=== PATIENT | male | born 1965 | race African-American/Black ===

== ENCOUNTER 2017-09-05 14:06 | Emergency (ER) | payer SELFPAY ==
--- NOTE | 2017-09-05 15:03 | RAD ---
THREE VIEWS OF THE RIGHT SHOULDER: DATE: 09/05/17. COMPARISON: None. HISTORY: Fell on right shoulder last night, injury, pain. FINDINGS: There is no widening of the AC or CC interspace. There is no displaced fracture or evidence of dislo cation seen. IMPRESSION: No acute fracture or evidence of dislocation. POS: [facility]
[2017-09-05] MEDS ORDERED: Ketorolac Tromethamine 60 MG/2 ML VIAL ONE (15:15)
== END 2017-09-05 15:46 | disposition home or self-care (01) ==
LOC: NAV ERS 14:06
DX: S40.011A Contusion of right shoulder, initial encounter (principal); F17.210 Nicotine dependence, cigarettes, uncomplicated; W01.0XXA Fall on same level from slipping, tripping and stumbling without subsequent striking against object, initial encounter
CPT/HCPCS: 96372; J1885

== ENCOUNTER 2017-09-20 15:06 | Emergency (ER) | payer SELFPAY ==
[2017-09-20] MEDS ORDERED: Acetaminophen/Codeine 30-300mg Tablet ONE (15:18)
== END 2017-09-20 15:28 | disposition home or self-care (01) ==
LOC: NAV ERS 15:06
DX: S43.421A Sprain of right rotator cuff capsule, initial encounter (principal); F17.210 Nicotine dependence, cigarettes, uncomplicated; Z71.6 Tobacco abuse counseling; W00.0XXA Fall on same level due to ice and snow, initial encounter
CPT/HCPCS: 99406

== ENCOUNTER 2019-09-02 05:40 | Emergency (ER) | payer SELFPAY ==
[2019-09-02 06:24] LABS: #Basophils 0.1 thou/uL (0.0-0.2); #Lymphocytes 1.4 thou/uL (1.20-3.40); #Monocytes 0.5 thou/uL (0.11-0.59); #Neutrophils 5.1 thou/uL (1.40-6.50); %Basophils 0.9 % (0.0-1.0); %Eosinophils 0.4 % (0.0-10.0); %Lymphocytes 19.1 % (21.0-51.0); %Monocytes 7.6 % (0.0-10.0); Hemoglobin 16.1 g/dL (14.0-18.0); Mean Corpuscular HGB CONC 31.5 g/dL (32.0-36.0); Mean Corpuscular Hemoglobin 28.8 pg (27.0-31.0); Mean Corpuscular Volume 91.5 fL (78.0-98.0); Mean Platelet Volume 7.4 fL (7.4-10.4); Platelet Count 216 thou/uL (130-400); RBC Distribution Width 13.2 % (11.5-14.5); Red Blood Cell (RBC) Count 5.59 mill/uL (4.70-6.10); White Blood Cell (WBC) Count 7.1 thou/uL (4.8-10.8)
[2019-09-02 06:32] LABS: Prothrombin Time 12.8 SEC (12.0-14.7)
[2019-09-02 06:33] LABS: PTT 30.2 SEC (22.9-36.1)
[2019-09-02 06:43] LABS: ALT (SGPT) 28 U/L (8-55); AST (SGOT) 46 U/L (5-34); Albumin 4.9 g/dL (3.5-5.0); Alcohol 178 mg/dL (Less than 10); Alkaline Phosphatase 109 U/L (40-110); Anion Gap 19 mmol/L (10-20); BUN (Urea Nitrogen) 11 mg/dL (8.4-25.7); Bilirubin, Total 0.3 mg/dL (0.2-1.2); Calc. Creatinine Clearance 0 mL/min (70-130); Carbon Dioxide 19 mmol/L (22-29); Chloride 109 mmol/L (98-107); Estimated GFR-MDRD Greater than 90; Globulin 3.4 g/dL (2.4-3.5); Glucose 91 mg/dL (70-105); Lipase 15 U/L (8-78); Protein, Total 8.3 g/dL (6.0-8.3); Sodium 143 mmol/L (136-145)
[2019-09-02 06:53] LABS: Bilirubin Negative (Negative); Blood, Urine Moderate (Negative); Clarity Clear (Clear); Glucose, Urine (Dipstick) Negative (Negative); Leukocyte Negative (Negative); Nitrite Negative (Negative); Protein, Urine (Dipstick) 30 mg/dL (Neg-Trace); Urobilinogen 0.2 mg/dL (Less than 2)
[2019-09-02 07:21] LABS: Bacteria/HPF None Seen HPF (None Seen); Squamous Epithelial 0-3 HPF (0-3); WBC/HPF None Seen HPF (0-3)
[2019-09-02] MEDS ORDERED: Sodium Chloride 0.9% 1,000 ML ONE (07:27)
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
== END 2019-09-02 08:00 ==
LOC: NAV ERS 05:40
DX: S16.1XXA Strain of muscle, fascia and tendon at neck level, initial encounter (principal); S20.212A Contusion of left front wall of thorax, initial encounter; S60.812A Abrasion of left wrist, initial encounter; R31.9 Hematuria, unspecified; F17.210 Nicotine dependence, cigarettes, uncomplicated; V89.2XXA Person injured in unspecified motor-vehicle accident, traffic, initial encounter
CPT/HCPCS: 70450; 71260; 72125; 74177; 80053; 80307; 81003; 81015; 82150; 82550; 83690; 85025; 85610; 85730; 94760; J7050